=== PATIENT | male | born 1995 | race Caucasian/White ===

== ENCOUNTER 2020-03-29 14:02 | Emergency (ER) | payer MEDICAID ==
[~2020-03-29] VITALS: Ht 177.8 cm; Wt 65.7 kg
[2020-03-29] MEDS ORDERED: FAMOTIDINE 20MG/2ML VIAL IV STA (15:33)
[2020-03-29] MEDS ORDERED: MORPHINE SULFATE 4 MG/ML CPJ (NOT FOR IM USE) IV STA (15:33)
[2020-03-29] MEDS ORDERED: ONDANSETRON HCL 4MG/2ML INJ IV STA (15:33)
[2020-03-29] MEDS ORDERED: SODIUM CHLORIDE 0.9% 1,000 ML IV ONE (15:45)
[2020-03-29 15:52] LABS: CHLORIDE 103 mEq/L (98-107); HEMATOCRIT. 45.8 % (42.0-52.0); HEMOGLOBIN. 15.5 g/dL (14.0-18.0); MEAN CORPUSCULAR HEMOGLOBIN 30.8 pg (28.0-32.0); MEAN PLATELET VOLUME 8.8 fl (7.4-10.4); PLATELET 240 x1000/uL (130-400); RED BLOOD CELL COUNT 5.04 mill/uL (4.7-6.1); RED CELL DISTRIBUTION WIDTH 13.8 % (11.6-14.6)
[2020-03-29 15:56] LABS: ETHANOL BLOOD < 10 mg/dL
[2020-03-29 17:11] LABS: PLATELET ESTIMATE NORMAL
[2020-03-29 17:25] LABS: CLARITY URINE CLEAR (CLEAR); COLOR URINE DARK YELLOW (YELLOW); KETONES URINE 2+ (NEGATIVE); LEUKOCYTE ESTERASE URINE TRACE (NEGATIVE); NITRITE URINE NEGATIVE (NEGATIVE); OCCULT BLOOD URINE NEGATIVE (NEGATIVE); PH URINE >=9.0 (4.5-8.0); PROTEIN URINE 2+ (NEGATIVE); SPECIFIC GRAVITY URINE 1.034 (1.005-1.030)
[2020-03-29 17:53] LABS: *AMPHETAMINES SCREEN URINE NEGATIVE (NEGATIVE); *BARBITURATES SCREEN URINE NEGATIVE (NEGATIVE); *BENZODIAZEPINES SCREEN URINE NEGATIVE (NEGATIVE); *COCAINE SCREEN URINE NEGATIVE (NEGATIVE); METHADONE URINE SCREEN NEGATIVE (NEGATIVE)
[2020-03-29 17:54] LABS: CANNABINOID URINE SCREEN PRESUMTIVE POSITIVE (NEGATIVE); OPIATES URINE SCREEN PRESUMTIVE POSITIVE (NEGATIVE); PHENCYCLIDINE URINE SCREEN NEGATIVE (NEGATIVE)
[2020-03-29 18:42] VITALS: BP 128/76
== END 2020-03-29 18:43 | disposition home or self-care (01) ==
LOC: ER 14:20
DX: R10.0 Acute abdomen (principal); R11.2 Nausea with vomiting, unspecified; R06.02 Shortness of breath; R01.1 Cardiac murmur, unspecified; J45.909 Unspecified asthma, uncomplicated; Z98.890 Other specified postprocedural states
CPT/HCPCS: 36415; 71045; 74176; 80053; 80305; 80320; 81003; 83690; 84484; 85025; 85610; 93005; 96374; 96375; 99285; J2270; J2405; J3490; J7030; G0480

== ENCOUNTER 2020-08-29 13:44 | Emergency (ER) | payer MEDICAID ==
[~2020-08-29] VITALS: Ht 175.3 cm; Wt 82.0 kg
[2020-08-29] MEDS ORDERED: ONDANSETRON HCL 4MG/2ML INJ IV ONE (15:30)
[2020-08-29] MEDS ORDERED: FAMOTIDINE 20MG/2ML VIAL IV ONE (15:45)
[2020-08-29] MEDS ORDERED: MORPHINE SULFATE 4 MG/ML CPJ (NOT FOR IM USE) IV ONE (15:45)
[2020-08-29 16:12] VITALS: BP 126/74
[2020-08-29] MEDS ORDERED: CAPS60CR3 TP (23:56)
== END 2020-08-29 16:52 | disposition home or self-care (01) ==
LOC: ER 13:44
DX: R11.2 Nausea with vomiting, unspecified (principal); F15.10 Other stimulant abuse, uncomplicated; F17.200 Nicotine dependence, unspecified, uncomplicated; J45.909 Unspecified asthma, uncomplicated
CPT/HCPCS: 96374; 96375; 99284; J2270; J2405; J3490

== ENCOUNTER 2020-08-29 21:50 | Emergency (ER) | payer MEDICAID ==
[~2020-08-29] VITALS: Ht 175.3 cm; Wt 66.0 kg
[2020-08-29] MEDS ORDERED: HALOPERIDOL LACTATE 5MG/ML VIAL IM ONE (23:00)
[2020-08-29 23:16] LABS: HEMATOCRIT 40.1 % (42.0-52.0); HEMOGLOBIN 13.9 g/dL (14.0-18.0); MEAN CORPUSCULAR HEMOGLOBIN 31.1 pg (28.0-32.0); MEAN CORPUSCULAR VOLUME 90.2 fL (80.0-94.0); PLATELET 353 x1000/uL (130-400); RED BLOOD CELL COUNT 4.45 mill/uL (4.7-6.1); RED CELL DISTRIBUTION WIDTH 14.2 % (11.6-14.6)
[2020-08-29 23:20] LABS: CHLORIDE 103 mEq/L (98-107)
[2020-08-29] MEDS ORDERED: CAPS60CR3 TP (23:56)
[2020-08-30 00:13] VITALS: BP 130/64
== END 2020-08-30 00:13 | disposition home or self-care (01) ==
LOC: ER 21:50
DX: F12.188 Cannabis abuse with other cannabis-induced disorder (principal)
CPT/HCPCS: 36415; 80053; 82962; 85027; 93005; 96372; 99284; J1630

== ENCOUNTER 2020-09-15 09:39 | Emergency (ER) | payer MEDICAID ==
[~2020-09-15] VITALS: Ht 177.8 cm; Wt 71.0 kg
[~2020-09-15 09:39] MED LIST: CAPS60CR3 TP
[2020-09-15] MEDS ORDERED: KETOROLAC 30MG/ML VIAL IV STA (10:24)
[2020-09-15] MEDS ORDERED: SODIUM CHLORIDE 0.9% 1,000 ML IV ONE (10:30)
[2020-09-15 10:42] LABS: BASOPHILS % 0.3 % (0.0-2.0); EOSINOPHILS % 0.6 % (0.0-5.0); HEMATOCRIT. 42.3 % (42.0-52.0); HEMOGLOBIN. 14.3 g/dL (14.0-18.0); LYMPHOCYTES % 7.7 % (20.0-50.0); MEAN CORPUSCULAR HEMOGLOBIN 30.5 pg (28.0-32.0); MEAN CORPUSCULAR VOLUME 90.3 fL (80.0-94.0); MEAN PLATELET VOLUME 8.4 fl (7.4-10.4); NEUTROPHILS % 86.4 % (40.0-76.0); PLATELET 270 x1000/uL (130-400); RED BLOOD CELL COUNT 4.68 mill/uL (4.7-6.1); RED CELL DISTRIBUTION WIDTH 13.7 % (11.6-14.6)
[2020-09-15 10:48] LABS: CHLORIDE 106 mEq/L (98-107)
[2020-09-15 10:53] LABS: ETHANOL BLOOD < 10 mg/dL
[2020-09-15] MEDS ORDERED: ONDA4TAB11 PO (12:43)
[2020-09-15] MEDS ORDERED: IBUP-2028 MT (12:43)
[2020-09-15] MEDS ORDERED: ONDANSETRON HCL 4MG/2ML INJ IV ONE (12:45)
[2020-09-15 13:43] LABS: CLARITY URINE CLOUDY (CLEAR); COLOR URINE YELLOW (YELLOW); KETONES URINE NEGATIVE (NEGATIVE); LEUKOCYTE ESTERASE URINE NEGATIVE (NEGATIVE); NITRITE URINE NEGATIVE (NEGATIVE); OCCULT BLOOD URINE NEGATIVE (NEGATIVE); PH URINE >=9.0 (4.5-8.0); PROTEIN URINE NEGATIVE (NEGATIVE); SPECIFIC GRAVITY URINE 1.052 (1.005-1.030); UROBILINOGEN URINE 0.2 E.U./dL (0.2-1.0)
[2020-09-15 13:54] LABS: *AMPHETAMINES SCREEN URINE NEGATIVE (NEGATIVE); *BARBITURATES SCREEN URINE NEGATIVE (NEGATIVE); *BENZODIAZEPINES SCREEN URINE PRESUMTIVE POSITIVE (NEGATIVE); *COCAINE SCREEN URINE NEGATIVE (NEGATIVE); METHADONE URINE SCREEN NEGATIVE (NEGATIVE)
[2020-09-15 13:55] LABS: CANNABINOID URINE SCREEN PRESUMTIVE POSITIVE (NEGATIVE); OPIATES URINE SCREEN NEGATIVE (NEGATIVE); PHENCYCLIDINE URINE SCREEN NEGATIVE (NEGATIVE)
[2020-09-15 14:15] VITALS: BP 122/63
[2020-09-15] MEDS ORDERED: IOHEXOL-300 100 ML BOTTLE ONE (18:29)
== END 2020-09-15 14:17 | disposition home or self-care (01) ==
LOC: ER 09:39
DX: R10.84 Generalized abdominal pain (principal); R11.2 Nausea with vomiting, unspecified; F12.188 Cannabis abuse with other cannabis-induced disorder; D72.829 Elevated white blood cell count, unspecified; F15.10 Other stimulant abuse, uncomplicated; Z71.51 Drug abuse counseling and surveillance of drug abuser
CPT/HCPCS: 36415; 71045; 74177; 80053; 80305; 80320; 81003; 83690; 85025; 96361; 96374; 96375; 99285; J1885; J2405; J7030; Q9967; Z7610; G0480

== ENCOUNTER 2020-12-25 07:12 | Emergency (ER) | payer MEDICAID ==
[~2020-12-25] VITALS: Ht 167.6 cm; Wt 66.0 kg
[~2020-12-25 07:12] MED LIST changes: +IBUP-2028 MT; +ONDA4TAB11 PO
[2020-12-25] MEDS ORDERED: MORPHINE SULFATE 4 MG/ML CPJ (NOT FOR IM USE) IV STA (07:53)
[2020-12-25] MEDS ORDERED: FAMOTIDINE 20MG/2ML VIAL IV STA (07:53)
[2020-12-25] MEDS ORDERED: ONDANSETRON HCL 4MG/2ML INJ IV STA (07:53)
[2020-12-25] MEDS ORDERED: SODIUM CHLORIDE 0.9% 1,000 ML IV ONE (08:00)
[2020-12-25 09:21] LABS: HEMATOCRIT. 44.8 % (42.0-52.0); HEMOGLOBIN. 15.6 g/dL (14.0-18.0); MEAN CORPUSCULAR HEMOGLOBIN 30.4 pg (28.0-32.0); MEAN PLATELET VOLUME 9.2 fl (7.4-10.4); PLATELET 219 x1000/uL (130-400); RED BLOOD CELL COUNT 5.14 mill/uL (4.7-6.1); RED CELL DISTRIBUTION WIDTH 13.4 % (11.6-14.6)
[2020-12-25 09:26] LABS: CHLORIDE 107 mEq/L (98-107)
[2020-12-25 09:31] LABS: CLARITY URINE CLEAR (CLEAR); COLOR URINE YELLOW (YELLOW); KETONES URINE TRACE (NEGATIVE); LEUKOCYTE ESTERASE URINE NEGATIVE (NEGATIVE); NITRITE URINE NEGATIVE (NEGATIVE); OCCULT BLOOD URINE 3+ (NEGATIVE); PH URINE 6.5 (4.5-8.0); PROTEIN URINE TRACE (NEGATIVE); SPECIFIC GRAVITY URINE 1.024 (1.005-1.030)
[2020-12-25] MEDS ORDERED: ONDA4TAB5 PO (09:41)
[2020-12-25] MEDS ORDERED: TOPUD PO (09:41)
[2020-12-25 09:51] VITALS: BP 111/53
[2020-12-25 09:55] LABS: PLATELET ESTIMATE NORMAL
== END 2020-12-25 09:54 | disposition home or self-care (01) ==
LOC: ER 07:12
DX: R10.13 Epigastric pain (principal); R11.2 Nausea with vomiting, unspecified; R19.7 Diarrhea, unspecified; R03.0 Elevated blood-pressure reading, without diagnosis of hypertension; D72.829 Elevated white blood cell count, unspecified
CPT/HCPCS: 36415; 80053; 81003; 83690; 85025; 96361; 96374; 96375; 99284; J2270; J2405; J3490; J7030

== ENCOUNTER 2021-10-11 10:28 | Emergency (ER) | payer MEDICAID ==
[~2021-10-11] VITALS: Ht 177.8 cm; Wt 66.0 kg
[~2021-10-11 10:28] MED LIST changes: +AMOX-424 MT; +AMOX1TAB16 PO; +DOXY100T2 MT; +ONDA4TAB5 PO; +TOPUD PO
[2021-10-11] MEDS ORDERED: KETOROLAC 30MG/ML VIAL IV STA (13:17)
[2021-10-11] MEDS ORDERED: ONDANSETRON HCL 4MG/2ML INJ IV STA (13:17)
[2021-10-11] MEDS ORDERED: SODIUM CHLORIDE 0.9% 1,000 ML IV ONE (13:30)
[2021-10-11 14:11] VITALS: BP 141/86
[2021-10-11 14:19] LABS: BASOPHILS % 0.3 % (0.0-2.0); EOSINOPHILS % 0.1 % (0.0-5.0); HEMATOCRIT. 44.6 % (42.0-52.0); HEMOGLOBIN. 15.2 g/dL (14.0-18.0); LYMPHOCYTES % 7.8 % (20.0-50.0); MEAN CORPUSCULAR HEMOGLOBIN 30.2 pg (28.0-32.0); MEAN CORPUSCULAR VOLUME 88.4 fL (80.0-94.0); MEAN PLATELET VOLUME 9.3 fl (7.4-10.4); MONOCYTES % 8.6 % (2.0-8.0); NEUTROPHILS % 83.2 % (40.0-76.0); PLATELET 244 x1000/uL (130-400); RED BLOOD CELL COUNT 5.04 mill/uL (4.7-6.1); RED CELL DISTRIBUTION WIDTH 13.4 % (11.6-14.6)
[2021-10-11 14:30] LABS: CHLORIDE 102 mEq/L (98-107)
[2021-10-11 14:37] LABS: CLARITY URINE CLEAR (CLEAR); COLOR URINE YELLOW (YELLOW); KETONES URINE 3+ (NEGATIVE); LEUKOCYTE ESTERASE URINE NEGATIVE (NEGATIVE); NITRITE URINE NEGATIVE (NEGATIVE); OCCULT BLOOD URINE NEGATIVE (NEGATIVE); PH URINE 6.5 (4.5-8.0); PROTEIN URINE NEGATIVE (NEGATIVE); SPECIFIC GRAVITY URINE 1.012 (1.005-1.030); UROBILINOGEN URINE 0.2 E.U./dL (0.2-1.0)
[2021-10-11] MEDS ORDERED: HALOPERIDOL LACTATE 5MG/ML VIAL IM NR (15:00)
[2021-10-11] MEDS ORDERED: VISCOUS LIDOCAINE 2% 15 ML UDC PO NR (15:56)
[2021-10-11] MEDS ORDERED: MAGNESIUM/ALUMINUM HYDROXIDE/SIMETHICONE 30ML UDC PO NR (15:56)
[2021-10-11] MEDS ORDERED: ONDA4TAB5 MT (16:25)
[2021-10-11] MEDS ORDERED: OMEP20TA15 MT (16:26)
== END 2021-10-11 17:00 | disposition home or self-care (01) ==
LOC: ER 12:43
DX: K29.70 Gastritis, unspecified, without bleeding (principal); J45.909 Unspecified asthma, uncomplicated; Z98.890 Other specified postprocedural states; Z79.899 Other long term (current) drug therapy
CPT/HCPCS: 36415; 71045; 80053; 81003; 83690; 85025; 96361; 96374; 96375; 99284; J1885; J2405; J7030

== ENCOUNTER 2021-11-29 03:15 | Emergency (ER) | payer MEDICAID ==
[~2021-11-29] VITALS: Ht 172.7 cm; Wt 69.0 kg
[~2021-11-29 03:15] MED LIST changes: +OMEP20TA15 MT; +ONDA4TAB5 MT
[2021-11-29 03:45] VITALS: BP 118/67
[2021-11-29] MEDS ORDERED: ACETAMINOPHEN 325MG TABLET PO ONE (09:15)
[2021-11-29] MEDS ORDERED: ONDANSETRON 4MG ODT PO ONE (09:15)
[2021-11-29 10:48] LABS: CLARITY URINE CLEAR (CLEAR); COLOR URINE YELLOW (YELLOW); KETONES URINE 2+ (NEGATIVE); LEUKOCYTE ESTERASE URINE NEGATIVE (NEGATIVE); NITRITE URINE NEGATIVE (NEGATIVE); OCCULT BLOOD URINE NEGATIVE (NEGATIVE); PROTEIN URINE TRACE (NEGATIVE); SPECIFIC GRAVITY URINE 1.038 (1.005-1.030)
[2021-11-29 11:09] LABS: *AMPHETAMINES SCREEN URINE NEGATIVE (NEGATIVE); *BARBITURATES SCREEN URINE NEGATIVE (NEGATIVE); *BENZODIAZEPINES SCREEN URINE NEGATIVE (NEGATIVE); *COCAINE SCREEN URINE NEGATIVE (NEGATIVE); CANNABINOID URINE SCREEN PRESUMTIVE POSITIVE (NEGATIVE); METHADONE URINE SCREEN NEGATIVE (NEGATIVE); OPIATES URINE SCREEN PRESUMTIVE POSITIVE (NEGATIVE); PHENCYCLIDINE URINE SCREEN NEGATIVE (NEGATIVE)
[2021-11-29 11:34] LABS: BASOPHILS % 0.5 % (0.0-2.0); EOSINOPHILS % 0.5 % (0.0-5.0); HEMATOCRIT. 44.7 % (42.0-52.0); HEMOGLOBIN. 14.9 g/dL (14.0-18.0); LYMPHOCYTES % 12.9 % (20.0-50.0); MEAN CORPUSCULAR HEMOGLOBIN 30.4 pg (28.0-32.0); MEAN CORPUSCULAR VOLUME 91.4 fL (80.0-94.0); MEAN PLATELET VOLUME 8.1 fl (7.4-10.4); MONOCYTES % 3.9 % (2.0-8.0); NEUTROPHILS % 82.2 % (40.0-76.0); PLATELET 219 x1000/uL (130-400); RED BLOOD CELL COUNT 4.89 mill/uL (4.7-6.1); RED CELL DISTRIBUTION WIDTH 14.2 % (11.6-14.6)
[2021-11-29 11:41] LABS: CHLORIDE 108 mEq/L (98-107)
[2021-11-29 11:48] LABS: ETHANOL BLOOD < 10 mg/dL
[2021-11-29] MEDS ORDERED: ONDA4TAB50 MT (23:53)
== END 2021-11-29 12:37 | disposition home or self-care (01) ==
LOC: ER 03:15
DX: R11.2 Nausea with vomiting, unspecified (principal); R10.9 Unspecified abdominal pain
CPT/HCPCS: 36415; 76705; 80053; 80305; 80320; 81003; 83690; 85025; 99284; Q0162; G0480

== ENCOUNTER 2021-11-29 18:59 | Emergency (ER) | payer MEDICAID ==
[~2021-11-29] VITALS: Ht 177.8 cm; Wt 64.0 kg
[2021-11-29 19:12] VITALS: BP 99/60
[2021-11-29] MEDS ORDERED: ONDANSETRON HCL 4MG TABLET PO ONE (21:30)
[2021-11-29] MEDS ORDERED: HALOPERIDOL LACTATE 5MG/ML VIAL IM ONE (21:30)
[2021-11-29] MEDS ORDERED: DIPHENHYDRAMINE 50MG/ML VIAL IM ONE (21:30)
[2021-11-29] MEDS ORDERED: ONDA4TAB50 MT (23:53)
== END 2021-11-30 00:04 | disposition home or self-care (01) ==
LOC: ER 18:59
DX: R11.2 Nausea with vomiting, unspecified (principal); F12.90 Cannabis use, unspecified, uncomplicated
CPT/HCPCS: 96372; 99284; J1200; J1630; Q0162

== ENCOUNTER 2022-05-14 15:06 | Emergency (ER) | payer MEDICAID ==
[~2022-05-14] VITALS: Ht 170.2 cm; Wt 75.0 kg
[~2022-05-14 15:06] MED LIST changes: +ONDA4TAB50 MT
[2022-05-14] MEDS ORDERED: ONDANSETRON HCL 4MG/2ML INJ IV STA (15:24)
[2022-05-14] MEDS ORDERED: SODIUM CHLORIDE 0.9% 1,000 ML IV ONE (15:30)
[2022-05-14] MEDS ORDERED: HALOPERIDOL LACTATE 5MG/ML VIAL IM ONE (15:30)
[2022-05-14 16:42] LABS: HEMOGLOBIN. 14.7 g/dL (14.0-18.0); MEAN CORPUSCULAR VOLUME 87.7 fL (80.0-94.0); MEAN PLATELET VOLUME 8.7 fl (7.4-10.4); PLATELET 231 x1000/uL (130-400); RED BLOOD CELL COUNT 4.91 mill/uL (4.7-6.1); RED CELL DISTRIBUTION WIDTH 13.5 % (11.6-14.6)
[2022-05-14 16:49] LABS: CHLORIDE 105 mEq/L (98-107)
[2022-05-14 17:01] LABS: ETHANOL BLOOD < 10 mg/dL
[2022-05-14 20:00] VITALS: BP 133/60
[2022-05-14 20:46] LABS: PLATELET ESTIMATE NORMAL
== END 2022-05-14 21:30 | disposition left against medical advice (07) ==
LOC: ER 15:06
DX: R11.10 Vomiting, unspecified (principal); F12.10 Cannabis abuse, uncomplicated; J45.909 Unspecified asthma, uncomplicated; Z79.899 Other long term (current) drug therapy
CPT/HCPCS: 36415; 71045; 80053; 80320; 83880; 84484; 85025; 93005; 96361; 96372; 96374; 99285; J1630; J2405; J7030; G0480

== ENCOUNTER 2024-01-12 06:57 | Inpatient (IN) | payer MEDICAID, OTHER ==
[~2024-01-12] VITALS: Ht 177.8 cm; Wt 64.9 kg
[~2024-01-12 06:57] MED LIST changes: +ONDA-239 PO; -ONDA4TAB11 PO
[2024-01-12 07:00] VITALS: O2SAT 100
[2024-01-12] MEDS: SODIUM CHLORIDE 0.9% 1,000 ML IV ONE (07:40)
[2024-01-12] MEDS: ONDANSETRON HCL 4MG/2ML INJ IV STA (07:40)
[2024-01-12] MEDS: FAMOTIDINE 20MG/2ML VIAL IV STA (07:40)
[2024-01-12 07:42] LABS: BASOPHILS % 0.5 % (0.0-2.0); EOSINOPHILS % 1.1 % (0.0-5.0); HEMATOCRIT. 39.3 % (42.0-52.0); HEMOGLOBIN. 13.3 g/dL (14.0-18.0); LYMPHOCYTES % 7.9 % (20.0-50.0); MEAN CORPUSCULAR HEMOGLOBIN 29.7 pg (28.0-32.0); MEAN CORPUSCULAR HGB CONC 33.8 g/dL (31.0-37.0); MEAN CORPUSCULAR VOLUME 87.9 fL (80.0-94.0); MEAN PLATELET VOLUME 7.8 fl (7.4-10.4); MONOCYTES % 7.9 % (2.0-8.0); NEUTROPHILS % 82.6 % (40.0-76.0); PLATELET 519 x1000/uL (130-400); RED BLOOD CELL COUNT 4.47 mill/uL (4.7-6.1); RED CELL DISTRIBUTION WIDTH 12.9 % (11.6-14.6); WHITE BLOOD COUNT 14.1 x1000/uL (4.5-11.0)
[2024-01-12 07:48] LABS: CHLORIDE 104 mEq/L (98-107); POTASSIUM 2.9 mEq/L (3.5-5.1); SODIUM 139 mEq/L (136-145)
[2024-01-12 07:49] LABS: CARBON DIOXIDE 23 mEq/L (21-32)
[2024-01-12 07:50] LABS: CALCIUM 9.8 mg/dL (8.7-10.4)
[2024-01-12 07:54] LABS: CREATININE 0.8 mg/dL (0.6-1.3); GLUCOSE 140 mg/dL (70-105); UREA NITROGEN BLOOD 7 mg/dL (9-23)
[2024-01-12 07:56] LABS: ALANINE AMINOTRANSFERASE 16 IU/L (10-49); ALBUMIN 4.7 g/dL (3.2-4.8); ASPARTATE AMINOTRANSFERASE 21 IU/L (<34); BILIRUBIN DIRECT 0.2 mg/dL (<=3.0); BILIRUBIN TOTAL 0.4 mg/dL (0.1-1.0); PROTEIN TOTAL 7.3 g/dL (6.0-8.3)
[2024-01-12 08:09] LABS: INR 1.1; PROTHROMBIN TIME 12.2 sec (9.6-11.0)
[2024-01-12] MEDS ORDERED: GUAIFENESIN 200MG/10ML SUGAR FREE UDC PO PRN (09:30)
[2024-01-12] MEDS ORDERED: ACETAMINOPHEN 325MG TABLET PO PRN ×2 (09:30)
[2024-01-12] MEDS ORDERED: SODIUM CHLORIDE 0.9% 1,000 ML IV SCH (09:30)
[2024-01-12] MEDS ORDERED: DOCUSATE SODIUM 100MG CAPSULE PO PRN (09:30)
[2024-01-12] MEDS ORDERED: CLONIDINE 0.1MG TABLET PO PRN (09:30)
[2024-01-12] MEDS ORDERED: MAGNESIUM/ALUMINUM HYDROXIDE/SIMETHICONE 30ML UDC PO PRN (09:30)
[2024-01-12] MEDS ORDERED: IPRATROPIUM/ALBUTEROL 0.5-3(2.5)MG/3ML NEB NEB PRN (09:30)
[2024-01-12 12:00] VITALS: BP 133/70; PULSE 63; RESP 18; TEMP 37.11408; O2SAT 100
[2024-01-12 12:21] LABS: IRON 36 ug/dL (65-175)
[2024-01-12 12:23] LABS: TOTAL IRON BINDING CAPACITY 223 ug/dl (250-425)
[2024-01-12 12:25] LABS: FOLIC ACID (FOLATE) SERUM 18.17 ng/mL (>5.38); T4 FREE 1.52 ng/dL (0.89-1.76); VITAMIN B12 SERUM 922 pg/mL (211-911)
[2024-01-12 12:26] LABS: THYROID STIMULATING HORMONE 0.45 uIU/mL (0.55-4.78)
[2024-01-12 12:29] LABS: ETHANOL BLOOD < 10 mg/dL (<10)
[2024-01-12] MEDS: PANTOPRAZOLE SODIUM 40 MG/VIAL IV SCH (12:40)
[2024-01-12] MEDS: KETOROLAC 15MG/ML VIAL IV PRN (12:40)
[2024-01-12] MEDS: ONDANSETRON HCL 4MG/2ML INJ IV PRN (12:41)
[2024-01-12] MEDS: POTASSIUM CHLORIDE 20MEQ TABLET SR PO NR ×2 (12:41→20:38)
[2024-01-12] MEDS: METOCLOPRAMIDE HCL 10MG/2ML VIAL IV NR (16:39)
[2024-01-12] MEDS: KCL 20MEQ/100ML PREMIX 100 ML IV SCH (16:40)
[2024-01-12] MEDS: ZOLPIDEM TARTRATE 5MG TABLET PO PRN (16:45)
[2024-01-12] MEDS ORDERED: DEXT 5%/0.9% NACL KCL 30MEQ/L 1,000 ML IV SCH (17:00)
[2024-01-12 17:32] LABS: CLARITY URINE CLEAR (CLEAR); COLOR URINE YELLOW (YELLOW); GLUCOSE URINE NEGATIVE (NEGATIVE); KETONES URINE 3+ (NEGATIVE); LEUKOCYTE ESTERASE URINE NEGATIVE (NEGATIVE); NITRITE URINE NEGATIVE (NEGATIVE); OCCULT BLOOD URINE NEGATIVE (NEGATIVE); PH URINE >=9.0 (4.5-8.0); PROTEIN URINE 1+ (NEGATIVE); SPECIFIC GRAVITY URINE 1.019 (1.005-1.030); UROBILINOGEN URINE 0.2 E.U./dL (0.2-1.0)
[2024-01-12 17:46] LABS: *AMPHETAMINES SCREEN URINE NEGATIVE (NEGATIVE); *BARBITURATES SCREEN URINE NEGATIVE (NEGATIVE); *BENZODIAZEPINES SCREEN URINE NEGATIVE (NEGATIVE); *COCAINE SCREEN URINE NEGATIVE (NEGATIVE)
[2024-01-12 17:47] LABS: CANNABINOID URINE SCREEN PRESUMPTIVE POSITIVE (NEGATIVE); ECSTASY MDMA SCREEN URINE NEGATIVE (NEGATIVE); METHADONE URINE SCREEN NEGATIVE (NEGATIVE); OPIATES URINE SCREEN PRESUMPTIVE POSITIVE (NEGATIVE); PHENCYCLIDINE URINE SCREEN NEGATIVE (NEGATIVE)
[2024-01-12 17:50] LABS: BACTERIA URINE NONE SEEN; RBC URINE NONE SEEN /hpf (0-2); SQUAMOUS EPITHELIAL CELL URINE RARE /lpf (RARE/1+); WBC URINE 0-2 /hpf (0-2)
[2024-01-12] MEDS: POTASSIUM CHLORIDE 30 MEQ in DEXT 5%/0.9% NACL 1,000 ML IV SCH (18:02)
[2024-01-12] MEDS: HALOPERIDOL LACTATE 5MG/ML VIAL IM NR (18:02)
[2024-01-12 18:33] VITALS: BP 133/70; PULSE 63; RESP 18; TEMP 37.1408
[2024-01-12 20:00] VITALS: BP 100/48; PULSE 75; RESP 18; TEMP 38.22528; O2SAT 98
[2024-01-13] MEDS ORDERED: DEXAMETHASONE 6MG TABLET PO SCH (09:00)
[2024-01-13] MEDS ORDERED: DEXAMETHASONE 4MG TABLET PO SCH ×2 (09:00)
== END 2024-01-12 21:15 | disposition left against medical advice (07) | DRG 241 ==
LOC: ER 06:57 → 5WST 08:00 → EDBEDREQTM 08:07 → EDBEDREQ 08:07 → 6EST 11:15
PROVIDERS: ADMIT Internal Medicine; ATTEND Internal Medicine
DX: K29.70 Gastritis, unspecified, without bleeding (principal); D63.8 Anemia in other chronic diseases classified elsewhere; E87.6 Hypokalemia; F12.10 Cannabis abuse, uncomplicated; Z53.29 Procedure and treatment not carried out because of patient's decision for other reasons; J45.909 Unspecified asthma, uncomplicated; Z79.899 Other long term (current) drug therapy
CPT/HCPCS: 36415; 80048; 80076; 80305; 80320; 81003; 82607; 82746; 83036; 83540; 83550; 84439; 84443; 85025; 93970; 99285; J1630; J1885; J2405; J2470; J2765; J3480; J3490; J7030; J7042; G0480